=== PATIENT | female | born 1990 | race Caucasian/White ===

== ENCOUNTER 2020-11-23 15:49 | Inpatient (IN) | payer MEDICAID ==
[~2020-11-23] VITALS: Ht 162.6 cm; Wt 79.4 kg
--- NOTE | 2020-11-23 16:10 | NUR ---
The patient is bibs for c/o abd pain, radiating ro lower back since , +Nausea, and diarrhea. Denies pain rates pain 10/10. Respiration regular and unlabored. Denies SOB. [place] provided for comfort. Will continue to monitor.
[2020-11-23] MEDS ORDERED: ONDANSETRON HCL/PF 4 MG/2 ML VIAL ONE (16:12)
[2020-11-23] MEDS ORDERED: MORPHINE SULFATE INJ 2 MG/ML DISP.SYRIN ONE (16:12)
[2020-11-23] MEDS ORDERED: ONDANSETRON HCL/PF 4 MG/2 ML VIAL IVP ONE (16:30)
[2020-11-23] MEDS ORDERED: IV NS 0.9% 1,000 ML BAG IV ONE (16:30)
[2020-11-23] MEDS ORDERED: MORPHINE SULFATE INJ 2 MG/ML DISP.SYRIN IV ONE (16:30)
[2020-11-23 16:42] LABS: BASOPHILS % (AUTO) 0.2 % (0.0-2.0); EOSINOPHILS % (AUTO) 0.7 % (0.0-6.0); HEMATOCRIT 34 % (33-45); HEMOGLOBIN 11.3 g/dL (11.5-14.8); LYMPHOCYTES # (AUTO) 1.8 /CMM (0.8-4.8); LYMPHOCYTES % (AUTO) 17.2 % (20.0-44.0); MEAN CORPUSCULAR HGB CONC 33 g/dl (31.0-36.0); MEAN CORPUSCULAR VOLUME 94 fL (82-100); MONOCYTES # (AUTO) 0.7 /CMM (0.1-1.30); MONOCYTES % (AUTO) 7.1 % (2.0-12.0); NEUTROPHILS # (AUTO) 7.9 /CMM (1.8-8.9); NEUTROPHILS % (AUTO) 74.8 % (43.0-81.0); PLATELET COUNT (AUTO) 303 /CMM (150-450); RED BLOOD CELL COUNT(AUTO) 3.66 MIL/uL (4.0-5.2); WHITE BLOOD COUNT (AUTO) 10.6 K/uL (4.3-11.0)
[2020-11-23 16:49] LABS: CREATININE 0.6 mg/dL (0.6-1.3); POTASSIUM 3.7 mmol/L (3.5-5.1)
[2020-11-23 16:52] LABS: BILIRUBIN,URINE NEGATIVE (NEGATIVE); COLOR,URINE DARK YELLOW (YELLOW); LEUKOCYTE ESTERASE ,URINE NEGATIVE (NEGATIVE); NITRITE, URINE POSITIVE (NEGATIVE); PROTEIN,URINE NEGATIVE (NEGATIVE); UGLUCOSE NEGATIVE (NEGATIVE)
[2020-11-23 16:55] LABS: ALBUMIN 3.2 g/dL (3.4-5.0); BILIRUBIN,DIRECT 0.1 mg/dL (0.0-0.2); BILIRUBIN,TOTAL 0.4 mg/dL (0.2-1.0); TOTAL PROTEIN, SERUM 8.2 g/dL (6.4-8.2)
[2020-11-23 17:25] LABS: BACTERIA,URINE Many /HPF (None Seen); SQUAMOUS EPITHELIAL CELL,UR Many /HPF (None Seen)
--- NOTE | 2020-11-23 18:04 | NUR ---
DR. BALL SPEAKING WITH DR. JAFFE
[2020-11-23] MEDS ORDERED: HYDROMORPHONE 1 MG/1 ML DISP.SYRIN IV ONE (18:30)
[2020-11-23] MEDS ORDERED: HYDROMORPHONE 1 MG/1 ML DISP.SYRIN ONE (18:30)
[2020-11-23] MEDS ORDERED: PIPERACILLIN /TAZOBACTAM 3.375 G in IV D5W 50 ML IV ONE (18:30)
[2020-11-23] MEDS ORDERED: IV NS 0.9% 1,000 ML IV ONE (18:30)
--- NOTE | 2020-11-23 18:52 | NUR ---
covid swab done and taken it to the lab
[2020-11-23] MEDS ORDERED: MAGNESIUM HYDROXIDE 30 ML UDC PO PRN (19:00)
[2020-11-23] MEDS ORDERED: ONDANSETRON HCL/PF 4 MG/2 ML VIAL IVP PRN (19:00)
[2020-11-23] MEDS ORDERED: MAG HYDROX/AL HYDROX/SIMETH 30 ML UDC PO PRN (19:00)
[2020-11-23] MEDS ORDERED: ACETAMINOPHEN 325 MG TABLET PO PRN (19:00)
[2020-11-23] MEDS ORDERED: Z GUARD REMEDY 2 OZ OINT TP PRN (19:00)
--- NOTE | 2020-11-23 20:29 | NUR ---
REPORT GIVEN TO PHILLIP ON THIRD FLOOR
--- NOTE | 2020-11-23 20:35 | NUR ---
DR LIZZY COLUNGA'S PA, AT [facility] SIDE
--- NOTE | 2020-11-23 21:00 | NUR ---
pt was transferred to [facility] in stable condition.
[2020-11-23 21:30] VITALS: BP 112/69
[2020-11-23] MEDS: MORPHINE SULFATE INJ 2 MG/ML DISP.SYRIN IV PRN (21:35)
[2020-11-23] MEDS: IV D5/0.45 NACL 1,000 ML IV PRN (21:35)
--- NOTE | 2020-11-23 22:00 | NUR ---
MS/DIAL MOUNTER NOTE RECEIVED PATIENT FROM ER VIA [facility] AND 2 STAFF MEMBERS. PATIENT ACCOMPANIED TO ROOM 314-2. PATIENT IS ALERT AND ORIENTED X 4. ABLE TO MAKE NEEDS KNOWN. ADMITTED FOR ACUTE PERFORATED APPENDICITIS. PMHX INCLUDES OVARIAN CYST AND MISCARRIAGE. COMPLAINTS OF PAIN TO RIGHT SIDE ABDOMEN 8/10. GIVEN PRN MORPHINE WITH POSITIVE EFFECT. IV ACCESS TO RIGHT AC INTACT AND PATENT. CONTINUES ON IVF D5 1/2NS @ 75ML/HR. SKIN CHECK PERFORMED WITH NO SKIN ISSUES NOTED ON ADMISSION. PATIENT REMAINS NPO FOR POSSIBLE SURGERY IN AM. PATIENT AWARE AND AGREEABLE. VS: BP 112/69 HR 74 RR 18 T 98.2 O2 SAT 98% ON ROOM AIR. CALL LIGHT WITHIN REACH. WARM BLANKETS PROVIDED. SAFETY PRECAUTIONS MAINTAINED. WILL CONTINUE TO MONITOR.
[2020-11-23] MEDS ORDERED: PIPERACILLIN /TAZOBACTAM 3.375 G VIAL IV ONE (23:47)
[2020-11-24] MEDS ORDERED: PIPERACILLIN /TAZOBACTAM 3.375 G in IV D5W 50 ML IV SCH
[2020-11-24] MEDS: PIPERACILLIN /TAZOBACTAM 3.375 G in IV D5W 100 ML IV SCH ×3 (00:15→17:53)
[2020-11-24] MEDS: MORPHINE SULFATE INJ 2 MG/ML DISP.SYRIN IV PRN ×5 (01:34→21:05)
--- NOTE | 2020-11-24 06:15 | NUR ---
MS/RN CLOSING NOTE PATIENT CURRENTLY SLEEPING IN BED. ALERT AND ORIENTED X 4 AT BASELINE. NO COMPLAINTS OF PAIN AT THIS TIME. IV ACCESS TO RIGHT AC INTACT AND PATENT. CONTINUES ON IV ABX AND IVF. ORDERS IN PLACE FOR CT OF ABDOMEN PELVIS WITH CONTRAST THIS AM. CONSENT SIGNED AND IN CHART. NO COMPLAINTS OF NAUSEA/VOMITING/DIARRHEA THIS SHIFT. CALL LIGHT WITHIN REACH. ASPIRATION, FALL AND SAFETY PRECAUTIONS MAINTAINED. WILL ENDORSE PLAN OF CARE TO ONCOMING SHIFT.
[2020-11-24 06:24] LABS: BASOPHILS % (AUTO) 0.6 % (0.0-2.0); EOSINOPHILS % (AUTO) 1.2 % (0.0-6.0); HEMATOCRIT 29 % (33-45); HEMOGLOBIN 9.9 g/dL (11.5-14.8); LYMPHOCYTES # (AUTO) 1.4 /CMM (0.8-4.8); LYMPHOCYTES % (AUTO) 21.2 % (20.0-44.0); MEAN CORPUSCULAR HGB CONC 34 g/dl (31.0-36.0); MEAN CORPUSCULAR VOLUME 92 fL (82-100); MONOCYTES # (AUTO) 0.5 /CMM (0.1-1.30); MONOCYTES % (AUTO) 7.8 % (2.0-12.0); NEUTROPHILS # (AUTO) 4.6 /CMM (1.8-8.9); NEUTROPHILS % (AUTO) 69.2 % (43.0-81.0); PLATELET COUNT (AUTO) 293 /CMM (150-450); RED BLOOD CELL COUNT(AUTO) 3.15 MIL/uL (4.0-5.2); WHITE BLOOD COUNT (AUTO) 6.7 K/uL (4.3-11.0)
[2020-11-24 07:21] LABS: THYROID STIMULATING HORMONE 2.097 uIU/mL (0.358-3.74)
--- NOTE | 2020-11-24 07:30 | NUR ---
PT RECEIVED RESTING COMFORTABLY IN BED WITH EYES CLOSED. NO S/S OR C/O PAIN OR DISTRESS NOTED. SIDE RAILS UP X2, CALL LIGHT LEFT WITHIN REACH. WILL CONTINUE PLAN OF CARE.
[2020-11-24 07:41] LABS: ALBUMIN 2.7 g/dL (3.4-5.0); BILIRUBIN,DIRECT 0.1 mg/dL (0.0-0.2); BILIRUBIN,TOTAL 0.3 mg/dL (0.2-1.0); CALCIUM, SERUM 8.3 mg/dL (8.5-10.1); CREATININE 0.7 mg/dL (0.6-1.3); MAGNESIUM 2.2 mg/dL (1.8-2.4); PHOSPHORUS 2.9 mg/dL (2.5-4.9); POTASSIUM 3.5 mmol/L (3.5-5.1)
[2020-11-24 08:00] VITALS: BP 109/74
[2020-11-24] MEDS ORDERED: IOHEXOL 50 ML IV ONE (08:29)
[2020-11-24] MEDS: PANTOPRAZOLE 40 MG VIAL IV SCH (09:11)
[2020-11-24] MEDS ORDERED: CT SWABBABLE VALVE TRANS SET 1 EA INFUS.SET MC ONE (12:00)
[2020-11-24] MEDS ORDERED: IOHEXOL-300 100 ML VIAL IV ONE (12:00)
[2020-11-24] MEDS ORDERED: IV NS 0.9% 250 ML IV ONE (12:01)
[2020-11-24 16:00] VITALS: BP 108/70
--- NOTE | 2020-11-24 18:20 | NUR ---
RN CLOSING NOTES PT IS RESTING IN BED COMFORTABLY. PT A/OX4. NO SOB NOTED AT THE MOMENT. NO S/S OF DISTRESS. NO SIGNIFICANT CHANGES SINCE PREVIOUS SHIFT. ROUTINE AND PRN MEDS WERE GIVEN ORDERED. ALL NEEDS MET AND ATTENDED. SAFETY PRECAUTIONS IN PLACE: BED IN LOWEST POSITION, BRAKES LOCKED, CALL LIGHT WITHIN REACH. WILL ENDORSE TO NIGHT NURSE FOR KALI.
--- NOTE | 2020-11-24 19:30 | NUR ---
MS RN OPENING NOTE PATIENT RECEIVED IN BED RESTING. A/O X 4. PATIENT DOES NOT REPORT OF ANY PAIN OR DISCOMFORT AT THIS TIME. BREATHING EVEN AND UNLABORED. IV ATB INFUSING WELL. CALL LIGHT WITHIN REACH, ENCOURAGED PATIENT TO CALL IF IN NEED OF ANYTHING. WILL CONTINUE TO MONITOR.
[2020-11-24 20:00] VITALS: BP 116/72
[2020-11-24] MEDS: IV D5/0.45 NACL 1,000 ML IV PRN (21:05)
--- NOTE | 2020-11-24 21:10 | NUR ---
MS RN NOTE PT COMPLAINING OF 10/10 ABDOMINAL PAIN ON 0-10 PAIN SCALE. MORPHINE 1 MG IVP GIVEN. WILL REASSESS PAIN AT 2134.
--- NOTE | 2020-11-24 21:25 | NUR ---
RN NOTES Spoke to patient's boyfriend Immanuel Moseley and update regarding pt's condition. Also informed him that Jd-ENTERTAINMENT USHER already spoke to the patient's and explained it to her.
[2020-11-24 22:00] VITALS: BP 116/72
[2020-11-25] MEDS: PIPERACILLIN /TAZOBACTAM 3.375 G in IV D5W 100 ML IV SCH ×2 (00:47→08:07)
[2020-11-25] MEDS: MORPHINE SULFATE INJ 2 MG/ML DISP.SYRIN IV PRN ×3 (02:36→15:37)
[2020-11-25 06:31] LABS: BASOPHILS # (AUTO) 0.1 /CMM (0.0-0.2); BASOPHILS % (AUTO) 0.8 % (0.0-2.0); EOSINOPHILS % (AUTO) 1.5 % (0.0-6.0); HEMATOCRIT 31 % (33-45); HEMOGLOBIN 10.4 g/dL (11.5-14.8); LYMPHOCYTES # (AUTO) 1.9 /CMM (0.8-4.8); LYMPHOCYTES % (AUTO) 26.7 % (20.0-44.0); MEAN CORPUSCULAR HGB CONC 34 g/dl (31.0-36.0); MEAN CORPUSCULAR VOLUME 91 fL (82-100); MONOCYTES # (AUTO) 0.6 /CMM (0.1-1.30); MONOCYTES % (AUTO) 7.7 % (2.0-12.0); NEUTROPHILS # (AUTO) 4.6 /CMM (1.8-8.9); NEUTROPHILS % (AUTO) 63.3 % (43.0-81.0); PLATELET COUNT (AUTO) 308 /CMM (150-450); RED BLOOD CELL COUNT(AUTO) 3.37 MIL/uL (4.0-5.2); WHITE BLOOD COUNT (AUTO) 7.3 K/uL (4.3-11.0)
[2020-11-25 06:38] LABS: CALCIUM, SERUM 8.2 mg/dL (8.5-10.1); CREATININE 0.7 mg/dL (0.6-1.3); PHOSPHORUS 3.2 mg/dL (2.5-4.9); POTASSIUM 3.3 mmol/L (3.5-5.1)
--- NOTE | 2020-11-25 06:44 | NUR ---
MS RN CLOSING NOTE PATIENT RESTING IN BED, A/O X 4. NO S/S OF RESPIRATORY DISTRESS, NO C/O PAIN/DISCOMFORT AT THIS TIME. SAFETY PRECAUTIONS MAINTAINED THROUGHOUT THE SHIFT. ROUTINE AND PRN MEDS GIVEN. IV FLUIDS INFUSING WELL ON RAC #18G. PATIENT TOLERATING ROOM AIR WITH O2 SATURATION OF 98% ATTENDED ALL PATIENT NEEDS. WILL ENDORSE TO ORANGE PICKER NURSE FOR KALI.
--- NOTE | 2020-11-25 07:43 | NUR ---
MS RN OPENING NOTE PATIENT RESTING IN BED, A/O X 4. NO S/S OF RESPIRATORY DISTRESS, NO C/O PAIN/DISCOMFORT AT THIS TIME. SAFETY PRECAUTIONS MAINTAINED THROUGHOUT THE SHIFT. ROUTINE AND PRN MEDS GIVEN. IV FLUIDS INFUSING WELL ON RAC #18G. PATIENT TOLERATING ROOM AIR WITH O2 SATURATION OF 98% ATTENDED ALL PATIENT NEEDS.
[2020-11-25 08:00] VITALS: BP 110/72
[2020-11-25] MEDS: PANTOPRAZOLE 40 MG VIAL IV SCH (08:07)
[2020-11-25] MEDS ORDERED: DOXYCYCLINE HYCLATE (100 MG) 100 MG TABLET PO SCH (10:00)
--- NOTE | 2020-11-25 10:23 | NUR ---
Patient noted potassium level 3.3 this morning, and new order 20 mEq [place], noted and carry out.
[2020-11-25] MEDS ORDERED: POTASSIUM CHLORIDE 20 MEQ TAB.PRT.SR PO ONE (10:30)
[2020-11-25] MEDS ORDERED: AMOX/CLAVULANATE 875 MG TABLET PO SCH (11:00)
--- NOTE | 2020-11-25 16:50 | NUR ---
Patient left facility without Doctor's order also refused sign on AMA. Patient verbally understand about the risks and consequences involved in leaving the Hospital at this time, the benefit of continues treatment and hospitalization. Removed IV and ID band before patient leave. Informed MD regarding above.
== END 2020-11-25 16:52 | disposition left against medical advice (07) | DRG 248 ==
LOC: ER 15:49 → MED 20:03
PROVIDERS: ADMIT Registered Nurse; ATTEND Registered Nurse
DX: K35.33 Acute appendicitis with perforation, localized peritonitis, and gangrene, with abscess (principal); D64.9 Anemia, unspecified; Z20.822 Contact with and (suspected) exposure to COVID-19; F32.9 Major depressive disorder, single episode, unspecified; E66.01 Morbid (severe) obesity due to excess calories; J98.11 Atelectasis; N83.201 Unspecified ovarian cyst, right side; N20.0 Calculus of kidney; Z87.42 Personal history of other diseases of the female genital tract; R16.0 Hepatomegaly, not elsewhere classified; B96.89 Other specified bacterial agents as the cause of diseases classified elsewhere; Z98.890 Other specified postprocedural states; K50.90 Crohn's disease, unspecified, without complications; D25.9 Leiomyoma of uterus, unspecified; N73.9 Female pelvic inflammatory disease, unspecified; J90 Pleural effusion, not elsewhere classified
CPT/HCPCS: 36415; 76705-TC; 76856-TC; 80048-TC; 80061-TC; 80076-TC; 81001; 82150-TC; 82247-TC; 82248-TC; 82728-TC; 83540-TC; 83690-TC; 83735-TC; 84100-TC; 84443-TC; 84703-TC; 85025-TC; 85610-TC; 87040-TC; 87081-TC; 87086-TC; 87186-TC; C9113; G0378; J1170; J2270; J2405; J2543; J3490; J7030; J7050; J7060; Q9967